=== PATIENT | male | born 1965 | race Caucasian/White ===

== ENCOUNTER 2019-04-11 11:08 | Day surgery (SDC) | payer BC ==
[~2019-04-11 11:08] MED LIST: Buffered Lidocaine 1% SYRIN* 1 ML/SYRINGE INTRADERM ONE; Lactated Ringers 1000 ML Bag* 1,000 ML IV SCH
[2019-04-11] MEDS ORDERED: ceFAZolin 2 GM PREMIX in ORs 2 GM/50 ML BAG ONE (11:39)
[2019-04-11] MEDS ORDERED: Buffered Lidocaine 1% SYRIN* 1 ML/SYRINGE INTRADERM ONE (11:39)
[2019-04-11] MEDS ORDERED: ceFAZolin 1 GM ADVAN(*) 1 GM ADDV.VIAL IVPB ONE (11:39)
[2019-04-11] MEDS ORDERED: Glycopyrrolate IV* 0.2 MG/ML 1 ML VIAL ONE (12:39)
[2019-04-11] MEDS ORDERED: Dexamethasone IV* 4 MG/ML 1 ML (4 MG) ONE ×2 (12:39→14:37)
[2019-04-11] MEDS ORDERED: Ketorolac INJ* 30 MG/ML 1 ML VIAL ONE ×2 (12:39→15:40)
[2019-04-11] MEDS ORDERED: Propofol* 10 MG/ML 20 ML BTL ONE ×3 (12:39→15:39)
[2019-04-11] MEDS ORDERED: Ondansetron INJ* 2 MG/ML VIAL ONE ×2 (12:39→15:40)
[2019-04-11] MEDS ORDERED: Succinylcholine* 20 MG/ML 10 ML VIAL ONE ×2 (12:39→14:37)
[2019-04-11] MEDS ORDERED: Midazolam* 1 MG/ML 2 ML VIAL (2 MG) ONE (12:42)
[2019-04-11] MEDS ORDERED: fentaNYL* 50 MCG/ML 5 ML VIAL (250 MCG VIAL) ONE (12:42)
[2019-04-11] MEDS ORDERED: Famotidine IV* 10 MG/ML 2 ML (20 mg) ONE (14:15)
[2019-04-11] MEDS ORDERED: Midazolam* 1 MG/ML 5 ML VIAL (5 MG) ONE (14:18)
[2019-04-11] MEDS ORDERED: fentaNYL* 50 MCG/ML 2 ML VIAL (100 MCG VIAL) ONE ×3 (14:18→16:28)
[2019-04-11] MEDS ORDERED: Bupivacaine 0.25% SDV* 30 ML ONE (14:34)
[2019-04-11] MEDS ORDERED: Lidocaine 2% PF * 5 ML VIAL ONE (14:36)
[2019-04-11] MEDS ORDERED: Rocuronium* 10 MG/ML VIAL ONE (14:37)
[2019-04-11] MEDS ORDERED: Phenylephrine 40 MCG/ML SYRINGE ONE (15:16)
[2019-04-11] MEDS ORDERED: Acetaminophen IV 1GM/100ML * 100 ML ONE (15:17)
[2019-04-11] MEDS ORDERED: Sugammadex * 200 MG/2 ML VIAL IV PUSH ONE (15:37)
[2019-04-11] MEDS ORDERED: diPHENhydraMINE IV* 50 MG/ML 1 ml VIAL (BENADRYL) IV PRN (16:12)
[2019-04-11] MEDS ORDERED: Ondansetron INJ* 2 MG/ML VIAL IV PRN (16:12)
[2019-04-11] MEDS ORDERED: HYDROmorphone INJ1* 1 MG/ML SYRINGE IV PRN (16:12)
[2019-04-11] MEDS ORDERED: Naloxone* 0.4 MG/ML 1 ML VIAL IV PRN (16:12)
[2019-04-11] MEDS ORDERED: DiMENhydriNATE IV* 50 MG/ML VIAL IV PUSH PRN (16:12)
[2019-04-11] MEDS ORDERED: HYDROcodone/ACETAMIN 5-325 MG* 1 TAB PO PRN (16:12)
[2019-04-11] MEDS ORDERED: Levalbuterol 0.63MG/3ML NEB* UNIT OF USE INH PRN (16:12)
[2019-04-11] MEDS: fentaNYL* 50 MCG/ML 2 ML VIAL (100 MCG VIAL) IV PRN ×2 (16:14→16:20)
[2019-04-11] MEDS ORDERED: HYDROcodone/ACETAMIN 5-325 MG* 1 TAB ONE (16:28)
[2019-04-11 18:49] VITALS: BP 139/92
--- NOTE | 2019-04-12 02:25 | OP ---
DATE OF OPERATION: 04/11/19 - [facility] DATE OF : 67 SURGEON: Brant Newton MD. BAG REPAIRER: SHERRIE Wong. 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 POST-OP DIAGNOSIS: Chronic tendinosis with acute on chronic tear of the right Achilles tendon. OPERATIVE PROCEDURE: Advancement of Achilles tendon with a V release and posterior calcanectomy resection and reattachment of the tendon. DESCRIPTION OF PROCEDURE: The patient was taken to the operating with prone positioning and the thigh tourniquet raised. We made an 8 cm longitudinal incision along the medial border of the Achilles. Full-thickness flap was raised off of the Achilles. The tendon itself after being raised off the posterior calcaneus was debrided at its distal portion off a couple of centimeter where there was some calcific deposits. This left the tendon slightly short. So, proximally an inverted V release was made over the gastroc fascia proximally when it lies over the soleus. This allowed at least 2 cm of extra length. We resected the surface of the posterior calcaneus with a saw and used a power bur to freshen it. We then used the speed bridge to reattach the tendon at the calcaneus firmly and an additional FiberWire woven suture proximally to bring the tendon firmly down into good apposition of the calcaneal surface. We then irrigated the wound thoroughly closing the subcu with Monocryl suture, kunal for the skin, and a compression dressing plaster splint. [id number]/[facility] #: [id number] MARKO
== END 2019-04-11 18:50 | disposition home or self-care (01) ==
LOC: OR 11:08
PROVIDERS: ATTEND Orthopaedic Surgery
DX: S86.011A Strain of right Achilles tendon, initial encounter (principal); M76.61 Achilles tendinitis, right leg; M66.871 Spontaneous rupture of other tendons, right ankle and foot; E11.65 Type 2 diabetes mellitus with hyperglycemia; I10 Essential (primary) hypertension; M17.0 Bilateral primary osteoarthritis of knee; E66.9 Obesity, unspecified; G47.33 Obstructive sleep apnea (adult) (pediatric); K21.9 Gastro-esophageal reflux disease without esophagitis; Z68.41 Body mass index [BMI] 40.0-44.9, adult; Z79.4 Long term (current) use of insulin; Z91.030 Bee allergy status; Z99.81 Dependence on supplemental oxygen; X50.1XXA Overexertion from prolonged static or awkward postures, initial encounter; Y92.89 Other specified places as the place of occurrence of the external cause; Z87.891 Personal history of nicotine dependence
CPT/HCPCS: 88304; 88311; C1713; J0330; J0690; J1100; J1885; J2250; J2405; J2704; J3010; J3490

== ENCOUNTER 2020-02-14 07:15 | Inpatient (IN) ==
[2020-02-28] MEDS ORDERED: Lactated Ringers 1000 ml BAG 1,000 ML IV SCH (06:00)
[2020-02-28] MEDS ORDERED: Buffered Lidocaine 1% SYRIN 1 ml INTRADERM ONE (06:00)
[2020-02-28] MEDS ORDERED: ceFAZolin 2 GM PREMIX 2 GM/50 ML BAG ONE (08:53)
[2020-02-28] MEDS ORDERED: Rocuronium 50 mg VIAL 10 mg/ml 5 ml VIAL (50 mg) ONE ×2 (08:53→12:28)
[2020-02-28] MEDS ORDERED: Midazolam 2 mg/2 ml VIAL 1 mg/ml 2 ml VIAL (2 mg) ONE (08:53)
[2020-02-28] MEDS ORDERED: Propofol 10 MG/ML 20 ML BTL ONE ×2 (08:53→11:24)
[2020-02-28] MEDS ORDERED: Ondansetron 4 mg VIAL 2 MG/ML 2 ml VIAL ONE (08:53)
[2020-02-28] MEDS ORDERED: Dexamethasone IV 4 MG/ML VIAL 1 ml VIAL ONE (08:53)
[2020-02-28] MEDS ORDERED: Heparin 5000 UNITS/ML 1 mL VIAL ONE (08:53)
[2020-02-28] MEDS ORDERED: fentaNYL 250 mcg/5 ml 50 MCG/ML 5 ml VIAL (250 MCG) ONE ×2 (08:53→11:42)
[2020-02-28] MEDS ORDERED: Lidocaine 2% PF 5 ML VIAL ONE (08:53)
[2020-02-28] MEDS ORDERED: ceFAZolin 1 GM ADVAN 1 GM ADDV.VIAL IVPB ONE (08:54)
[2020-02-28] MEDS ORDERED: Prochlorperazine 5 mg/ml 2 ml VIAL (10 mg) IV PRN (09:23)
[2020-02-28] MEDS ORDERED: Naloxone 0.4 mg VIAL 0.4 mg/ml 1 ml VIAL IV PRN (09:23)
[2020-02-28] MEDS ORDERED: diPHENhydraMINE IV 50 MG/ML 1 ml VIAL (BENADRYL) IV PRN (09:23)
[2020-02-28] MEDS ORDERED: Bupivacaine 0.25% SDV 30 ML ONE (10:38)
[2020-02-28] MEDS ORDERED: Methylene Blue 0.5 % 50 MG/10 ML AMP IV ONE (10:38)
[2020-02-28] MEDS ORDERED: Acetaminophen IV 1 GM/100ML 100 ML ONE (12:20)
[2020-02-28] MEDS ORDERED: HYDROmorphone 1 MG/1 ML SYRINGE ONE ×2 (12:23→14:17)
[2020-02-28] MEDS ORDERED: fentaNYL 100 mcg/2 ml 50 MCG/ML VIAL ONE (13:39)
[2020-02-28] MEDS ORDERED: HYDROcodone/ACET. 7.5/325 LIQ 15 ML UDC PO PRN (14:01)
[2020-02-28] MEDS ORDERED: diPHENhydraMINE IV 50 MG/ML 1 ml VIAL (BENADRYL) SLOW PUSH PRN (14:01)
[2020-02-28] MEDS ORDERED: Ondansetron 4 mg VIAL 2 MG/ML 2 ml VIAL IV PRN (14:01)
[2020-02-28] MEDS ORDERED: HYDROmorphone 1 MG/1 ML SYRINGE IV SLOW PU PRN (14:01)
[2020-02-28] MEDS ORDERED: HYDROmorphone 0.5 MG/0.5 ML SYRINGE IV SLOW PU PRN (14:01)
[2020-02-28] MEDS ORDERED: Mometasone/Formoter 100/5 MDI INH PRN (14:14)
[2020-02-28] MEDS: HYDROmorphone 1 MG/1 ML SYRINGE IV PRN ×5 (14:18→15:41)
[2020-02-28] MEDS ORDERED: Metoprolol Tartrate 5 mg VIAL 5 ml VIAL (1 mg/ml) ONE (14:57)
[2020-02-28] MEDS ORDERED: hydrALAZINE 20 mg/ml 1 ML Vial IV IV SLOW PU PRN ×2 (15:14→22:22)
[2020-02-28] MEDS ORDERED: hydrALAZINE 20 mg/ml 1 ML Vial IV ONE (15:15)
[2020-02-28] MEDS: Lactated Ringers 1000 ml BAG 1,000 ML IV SCH ×2 (16:16→23:41)
[2020-02-28] MEDS ORDERED: Albuterol HFA INHALER 8 gm MDI INH PRN (16:30)
[2020-02-28] MEDS: Heparin 5000 UNITS/ML 1 mL VIAL SUBCUT SCH (22:06)
[2020-02-28] MEDS: Famotidine IV 10 MG/ML 2 ml VIAL (20 mg) IV SLOW PU SCH (22:07)
[2020-02-29] MEDS: Heparin 5000 UNITS/ML 1 mL VIAL SUBCUT SCH ×3 (06:07→21:21)
[2020-02-29] MEDS: Lactated Ringers 1000 ml BAG 1,000 ML IV SCH (06:41)
[2020-02-29] MEDS: Insulin GLARGINE 100 un/ml 10 ml VIAL SUBCUT SCH (08:14)
[2020-02-29] MEDS: Famotidine IV 10 MG/ML 2 ml VIAL (20 mg) IV SLOW PU SCH ×2 (08:15→21:21)
[2020-02-29] MEDS ORDERED: Insulin GLARGINE 100 un/ml 10 ml VIAL SUBCUT SCH (09:00)
[2020-02-29 09:11] LABS: ABS Basophils 0.1 10^3/ul (0-0.2); ABS Lymphocytes 2.1 10^3/ul (1.0-4.8); ABS Monocytes 0.7 10^3/ul (0-0.8); ABS Neutrophils 7.4 10^3/ul (1.5-7.7); Eosinophil % 0.4 %; Hematocrit 39 % (42-52); Hemoglobin 12.9 g/dL (14.0-18.0); Mean Corpuscular HGB Conc 34 g/dL (31-36); Mean Corpuscular Hemoglobin 29 pg (27-31); Mean Corpuscular Volume 86 fL (80-94); Mean Platelet Volume 10.5 fL (7.4-10.4); Platelet Count 174 10^3/uL (150-450); Red Blood Count 4.51 10^6 /uL (4.18-5.48); Red Cell Distribution Width 14 % (10-15); White Blood Count 10.4 10^3/uL (3.5-10.8)
[2020-02-29 09:29] LABS: Calcium 8.9 mg/dL (8.6-10.3); EGFR African American 131.8 (>60); EGFR Non-African American 108.9 (>60); Potassium 3.8 mmol/L (3.5-5.0)
[2020-02-29] MEDS: D5W 1/2 NS KCl 20 meq 1000 ml 1,000 ML IV SCH (14:14)
[2020-03-01] MEDS: D5W 1/2 NS KCl 20 meq 1000 ml 1,000 ML IV SCH (00:26)
[2020-03-01] MEDS: Heparin 5000 UNITS/ML 1 mL VIAL SUBCUT SCH (06:10)
[2020-03-01 06:51] LABS: ABS Basophils 0.1 10^3/ul (0-0.2); ABS Eosinophils 0.1 10^3/ul (0-0.6); ABS Lymphocytes 1.7 10^3/ul (1.0-4.8); ABS Monocytes 0.6 10^3/ul (0-0.8); ABS Neutrophils 4.7 10^3/ul (1.5-7.7); Eosinophil % 1.4 %; Hematocrit 35 % (42-52); Hemoglobin 11.7 g/dL (14.0-18.0); Lymphocyte % 24.1 %; Mean Corpuscular HGB Conc 33 g/dL (31-36); Mean Corpuscular Hemoglobin 29 pg (27-31); Mean Corpuscular Volume 85 fL (80-94); Mean Platelet Volume 10.6 fL (7.4-10.4); Platelet Count 152 10^3/uL (150-450); Red Blood Count 4.11 10^6 /uL (4.18-5.48); Red Cell Distribution Width 14 % (10-15); White Blood Count 7.2 10^3/uL (3.5-10.8)
[2020-03-01 07:02] LABS: BUN/Creatinine Ratio 21.1 (8-20); Calcium 8.6 mg/dL (8.6-10.3); EGFR African American 140.4 (>60); EGFR Non-African American 116.1 (>60); Potassium 3.9 mmol/L (3.5-5.0)
[2020-03-01 07:47] VITALS: BP 148/80
[2020-03-01] MEDS: Insulin GLARGINE 100 un/ml 10 ml VIAL SUBCUT SCH (08:30)
[2020-03-01] MEDS: Famotidine IV 10 MG/ML 2 ml VIAL (20 mg) IV SLOW PU SCH (08:33)
[2020-03-02] MEDS ORDERED: Scopolamine PATCH Remove NOTE PATCH OFF ONE (06:00)
== END 2020-03-01 09:50 | disposition home or self-care (01) | DRG 403 ==
LOC: AA 02-28 08:41 → SSU 02-28 14:01
PROVIDERS: ADMIT Surgery; ATTEND Surgery